=== PATIENT | male | born 1965 | race Caucasian/White ===

== ENCOUNTER → 2017-03-08 | Outpatient (CLI) | payer SELFPAY ==
[2017-03-08 12:57] VITALS: BP 121/2
--- NOTE | 2017-03-08 12:57 | Urgent Care T Sheet Gen (E) ---
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 He states it did not hit the bone, happened fast but he took it out, area on the left hand approximately inch long linear laceration. Refuses tetanus vaccine, states "im fine". States not a work related injury. Source: Patient History of Present Illness Onset & Duration: Hours Timing: Still present Recent Trauma: Yes Allergies: Coded Allergies: No Known Drug Allergies (Unverified , 03/08/17) Additional Comment no home meds reported Respiratory Constitutional Symptoms: No syptoms reported EENTM: No symptoms reported Respiratory: No symptoms reported Skin: Other (laceration to left hand palm side just underneathe the 5th digit - bleeding controlled) All Other Systems Reviewed Remaining Systems: All other systems reviewed with negative findings Past Iwyrqxv-Cypegr-Xoyxbg Hx Patient's Social History Alcohol Use: Denies Use Recreational Drug Use: Denies Use Surgeries/Hospitalizations Hospitalization/Surgery Hx: healthy Physical Exam Physical Exam General Appearance: WD/WN No apparent distress Eyes, Ears, Nose, Throat Ex: PERRL/EOMI Respiratory Exam: Lungs clear Normal breath sounds No respiratory distress Cardiovascular Exam: Regular rate, rhythm Skin Exam: Other (laceration left hand palm side approx 1 inch in length beneathe the 5 th digit, no bleeding now) Procedures/Interventions Laceration Repair : Location Modifier: Left, Ventral Wound Location: Hand (just underneath to base of the 5th digit- linear, no debri seen) Type: Skin Tear (skin tore when he pulled nail out) Wound Appearance: Unapproximated Laceration Depth: Superficial Lesion Length: 1 (1 inch ) Laceration Explored: Clean Irrigated w/Saline (mls): 10 Skin Prep Used: Betadine Anesthesia: 1% Lidocaine Volume of Anesthetic (mls): 5 Wound Debridement: Moderate Suture: Prolene Suture Size: 4-0 Number of Sutures: 5 Layer Closurer: 1 Sterile Dressing Applied: Yes Progress pt tolerated well- irrigated aggressively with saline- no debri seen. wound came together well- minimal bleeding seen. Long talk about tetanus vaccine- he refused Discussed about possible need for antibiotic- he refused Discussed wound care in detail or any S&S of infection etc- he will monitor it closely- monitor for fever, redness drainage, joint pain etc. He states hes going back to work now. Advised to be careful with wound Cover during shower Suture removal 7-10 days Call for any issues- he agrees to plan of care Departure Urgent Care Impression Chief Complaint: Injury Impression: Primary Impression: Laceration of hand Qualified Code: S61.412A - Laceration without foreign body of left hand, initial encounter Departure Disposition: 01 HOME OR SELF-CARE Condition: Stable Additional Instructions: Long talk about wound care and management Tylenol for pain or fever rest may ice extremity keep sutures clean and dry SR in 7-10 days He agrees to plan of care Again refused tetanus vaccine or meds. f/u PCP as needed End of report . CORI RUTLEDGE APRN () Mar 08, 2017 12:57
== END ==
LOC: MHUC 10:59
PROVIDERS: ATTEND Nurse Practitioner
DX: S61.412A Laceration without foreign body of left hand, initial encounter (principal); W31.89XA Contact with other specified machinery, initial encounter